=== PATIENT | female | born 1975 | race Hispanic/Latino ===

== ENCOUNTER 2019-07-22 22:19 | Emergency (ER) | payer MEDICAID, OTHER ==
--- NOTE | 2019-07-22 22:27 | Event Note ---
ED Screening Note Date of service: 07/22/19 Time: 22:25 ED Screening Note: Pt complains of pelvic pain for 2 months, worsening over the past week states hx of large ovarian cyst that she was supposed to have surgery for last year, but did not +vaginal discharge and urinary odor This initial assessment/diagnostic orders/clinical plan/treatment(s) is/are subject to change based on patients health status, clinical progression and re- assessment by fellow clinical providers in the ED. Further treatment and workup at subsequent clinical providers discretion. Patient/guardian urged not to elope from the ED as their condition may be serious if not clinically assessed and managed. Initial orders include: ultrasound labs
[2019-07-22 23:01] LABS: Hematocrit 39.7 % (30.3-42.9); Hemoglobin 13.4 gm/dl (10.1-14.3); Mean Corpuscular HGB Conc 34 % (30-34); Mean Corpuscular Volume 96 fl (79-97); Platelet Count 320 K/mm3 (140-440); Red Blood Count 4.14 M/mm3 (3.65-5.03); Red Cell Distribution Width 14.4 % (13.2-15.2)
--- NOTE | 2019-07-22 23:47 | Ultrasound Report ---
ULTRASOUND PELVIS INDICATION / CLINICAL INFORMATION: pelvic pain. TECHNIQUE: Transabdominal. Duplex Color Doppler used: Yes. COMPARISON: None available FINDINGS: UTERUS: Present. - Appearance (if present): No significant abnormality. - Size in cm (if present): 9.5 x 4.9 x 7.6 cm. - Endometrial Complex (if present): No significant abnormality.. Thickness in cm (if measured) = 8 mm - Mass lesions: None. - Additional findings: None. RIGHT ADNEXA: No significant ovarian cyst or mass. Normal color Doppler blood flow. Right ovary measu res 2.5 x 1.1 x 1.7 cm. LEFT ADNEXA: No significant ovarian cyst or mass. Normal color Doppler blood flow. Left ovary measure s 2.4 x 2.2 x 3.3 cm. There is a hypoechoic mass within the left ovary measuring 1.6 x 1.3 x 2.4 cm. FREE FLUID: None. ADDITIONAL FINDINGS: None. IMPRESSION: 1. 2.4 cm hypoechoic left ovarian mass. I suspect this is a complicated ovarian cyst. 2. No other significant abnormality. Signer Name: Ita Beebe MD Signed: 07/22/2019 11:42 PM Workstation Name: [id number]
[2019-07-22 23:56] LABS: Bilirubin,Urine NEG (Negative); Blood,Urine MOD (Negative); Color,Urine Yellow (Yellow); Mucus,Urine FEW /HPF; Protein,Urine <15 mg/dL mg/dL (Negative)
[2019-07-22 23:57] LABS: HCG Qualitative,Urine Negative (Negative)
--- NOTE | 2019-07-23 00:14 | Event Note ---
Date of service: 07/23/19 Face to Face: This is a 44-year-old female presenting with suprapubic discomfort, left lower quadrant pain. She endorses new onset feminine/vaginal discharge. Her exam is reported to be consistent with suspected pelvic inflammatory disease. Abdomen soft and benign, with no rebound, guarding or peritoneal signs. She states she can tolerate Motrin and Toradol. She reports no allergies to either these medications. In the past, she is followed by Dr. Hilario Mckeon, one of our local out[employer]. Her ultrasound does not demonstrate any emergent surgical condition at this time. She indicates she is reliable to follow-up with gynecology for her chronic left-sided ovarian cyst. Tachycardia has resolved, heart rate in the 90s. Print Report Referring Physician: GABRIELE NEGRON Patient Name: JOSEPH OCONNELL Date of : 1975 Sex: Female Report Date: 2019-07-22 Report Status: [place] [address] Ultrasound Report Signed Patient: JOSEPH OCONNELL MR#: [id number] : 1975 Acct:[id number] Age/Sex: 44 / F ADM Date: 07/22/19 Loc: ED Attending Dr: Ordering Physician: GABRIELE NEGRON Date of Service: 07/22/19 Procedure(s): US pelvic complete Accession Number(s): [id number] cc: GABRIELE NEGRON ULTRASOUND PELVIS INDICATION / CLINICAL INFORMATION: pelvic pain. TECHNIQUE: Transabdominal. Duplex Color Doppler used: Yes. COMPARISON: None available FINDINGS: UTERUS: Present. - Appearance (if present): No significant abnormality. - Size in cm (if present): 9.5 x 4.9 x 7.6 cm. - Endometrial Complex (if present): No significant abnormality.. Thickness in cm (if measured) = 8 mm - Mass lesions: None. - Additional findings: None. RIGHT ADNEXA: No significant ovarian cyst or mass. Normal color Doppler blood flow. Right ovary measures 2.5 x 1.1 x 1.7 cm. LEFT ADNEXA: No significant ovarian cyst or mass. Normal color Doppler blood flow. Left ovary measures 2.4 x 2.2 x 3.3 cm. There is a hypoechoic mass within the left ovary measuring 1.6 x 1.3 x 2.4 cm. FREE FLUID: None. ADDITIONAL FINDINGS: None. IMPRESSION: 1. 2.4 cm hypoechoic left ovarian mass. I suspect this is a complicated ovarian cyst. 2. No other significant abnormality. Signer Name: Ita Beebe MD Signed: 07/22/2019 11:42 PM Workstation Name: [id number] Transcribed By: JR Dictated By: Ita Beebe MD Electronically Authenticated By: Ita Beebe MD Signed Date/Time: 07/22/19 2342 Vital Signs 07/22/19 07/22/19 22:24 22:25 Temperature 98.3 F 98.3 F Pulse Rate 127 H 114 H Respiratory 18 18 Rate Blood Pressure 142/96 142/96 O2 Sat by Pulse 98 98 Oximetry Lab Results 07/22/19 07/22/19 07/22/19 Range/Units 22:36 22:36 23:29 WBC 10.6 (4.5-11.0) K/mm3 RBC 4.14 (3.65-5.03) M/mm3 Hgb 13.4 (10.1-14.3) gm/dl Hct 39.7 (30.3-42.9) % MCV 96 (79-97) fl MCH 32 (28-32) pg MCHC 34 (30-34) % RDW 14.4 (13.2-15.2) % Plt Count 320 (140-440) K/mm3 Sodium 141 (137-145) mmol/L Potassium 3.8 (3.6-5.0) mmol/L Chloride 103.6 (98-107) mmol/L Carbon Dioxide 24 (22-30) mmol/L Anion Gap 17 mmol/L BUN 23 H (7-17) mg/dL Creatinine 1.1 (0.7-1.2) mg/dL Estimated GFR 54 ml/min BUN/Creatinine Ratio 21 % Glucose 91 (65-100) mg/dL Calcium 10.0 (8.4-10.2) mg/dL Urine Color Yellow (Yellow) Urine Turbidity Slightly-cloudy (Clear) Urine pH 5.0 (5.0-7.0) Ur Specific [place] 1.025 (1.003-1.030) Urine Protein <15 mg/dl (Negative) mg/dL Urine Glucose (UA) Neg (Negative) mg/dL Urine Ketones Neg (Negative) mg/dL Urine Blood Mod (Negative) Urine Nitrite Neg (Negative) Urine Bilirubin Neg (Negative) Urine Urobilinogen 2.0 (<2.0) mg/dL Ur Leukocyte Esterase Lg (Negative) Urine WBC (Auto) 15.0 H (0.0-6.0) /HPF Urine RBC (Auto) 37.0 (0.0-6.0) /HPF U Epithel Cells (Auto) 9.0 (0-13.0) /HPF Urine Mucus Few /HPF Urine HCG, Qual Negative (Negative)
[2019-07-23] MEDS ORDERED: KETOROLAC 30 MG/1 ML INJ IM ONE (00:26)
[2019-07-23] MEDS ORDERED: metroNIDAZOLE 500 MG TAB PO ONE (00:29)
[2019-07-23] MEDS ORDERED: LIDOCAINE-MPF (1%) 10 MG/1 ML VIAL 5 ML INFILTRATI ONE (00:29)
[2019-07-23] MEDS ORDERED: DOXYCYCLINE 100 MG CAPSULE PO ONE (00:29)
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
[2019-07-23] MEDS ORDERED: ONDANSETRON 4 MG ODT TAB PO ONE (00:55)
[2019-07-23 02:23] VITALS: BP 117/71
== END 2019-07-23 02:24 | disposition home or self-care (01) ==
LOC: ED 22:19
DX: N76.0 Acute vaginitis (principal); B96.89 Other specified bacterial agents as the cause of diseases classified elsewhere; N39.0 Urinary tract infection, site not specified; N83.202 Unspecified ovarian cyst, left side; F41.9 Anxiety disorder, unspecified; F32.9 Major depressive disorder, single episode, unspecified; Z88.2 Allergy status to sulfonamides; Z88.5 Allergy status to narcotic agent; Z79.899 Other long term (current) drug therapy; Z86.2 Personal history of diseases of the blood and blood-forming organs and certain disorders involving the immune mechanism; Z90.49 Acquired absence of other specified parts of digestive tract; Z98.890 Other specified postprocedural states
CPT/HCPCS: 36415; 76856; 80048; 81001; 81025; 82550; 85027; 87086; 87210; 87591; 96372; 99284; J0696; J1885; Q0162

== ENCOUNTER 2019-07-26 18:47 | Emergency (ER) | payer OTHER ==
[2019-07-26] MEDS ORDERED: ASPIRIN 325 MG TAB PO ONE (19:44)
[2019-07-26 20:28] LABS: BUN/Creatinine Ratio 24; Blood Urea Nitrogen 19 mg/dL (7-17); Calcium 9.2 mg/dL (8.4-10.2); Hemolysis Index 11
[2019-07-26 20:37] LABS: Basophils % (Auto) 0.7 % (0.0-1.8); Eosinophils % (Auto) 0.7 % (0.0-4.3); Hematocrit 37.1 % (30.3-42.9); Lymphocytes # (Auto) 1.5 K/mm3 (1.2-5.4); Lymphocytes % (Auto) 21.9 % (13.4-35.0); Mean Corpuscular HGB Conc 35 % (30-34); Mean Corpuscular Volume 96 fl (79-97); Monocytes # (Auto) 0.4 K/mm3 (0.0-0.8); Monocytes % (Auto) 6.2 % (0.0-7.3); Platelet Count 274 K/mm3 (140-440); Red Blood Count 3.88 M/mm3 (3.65-5.03); Red Cell Distribution Width 14.2 % (13.2-15.2)
--- NOTE | 2019-07-26 21:06 | XRay Report ---
CHEST 1 VIEW INDICATION: Chest Pain COMPARISON: 04/12/2014 FINDINGS: Support devices: None Heart: Normal and unchanged Lungs/Pleura: No acute pulmonary disease. IMPRESSION: 1. No acute disease and no interval change. Signer Name: Jaguar Harrison MD Signed: 07/26/2019 9:02 PM Workstation Name: [id number]
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
[2019-07-26 22:51] VITALS: BP 119/81
== END 2019-07-26 23:51 | disposition home or self-care (01) ==
LOC: ED 18:47
DX: R07.89 Other chest pain (principal); F41.9 Anxiety disorder, unspecified; F32.9 Major depressive disorder, single episode, unspecified; M25.512 Pain in left shoulder; E03.9 Hypothyroidism, unspecified; F17.200 Nicotine dependence, unspecified, uncomplicated; Z86.2 Personal history of diseases of the blood and blood-forming organs and certain disorders involving the immune mechanism; Z90.49 Acquired absence of other specified parts of digestive tract; Z88.2 Allergy status to sulfonamides; Z79.899 Other long term (current) drug therapy; Z88.5 Allergy status to narcotic agent; Z98.890 Other specified postprocedural states
CPT/HCPCS: 36415; 71045; 80048; 84484; 84703; 85025; 93005; 93010; 99284